=== PATIENT | female | born 1980 | race Asian ===

== ENCOUNTER 2020-12-18 10:29 | Inpatient (IN) | payer OTHER, SELFPAY ==
[~2020-12-18] VITALS: Ht 157.5 cm; Wt 67.6 kg
[2020-12-18 10:30] VITALS: BP 97/57
--- NOTE | 2020-12-18 10:30 | NUR ---
PT BIBA TO BED 03
--- NOTE | 2020-12-18 10:37 | NUR ---
PT LAYLAFRIENJohn, STEPHEN, BEDSIDE WITH PT
--- NOTE | 2020-12-18 10:46 | NUR ---
40 Y/O FEMALE BIBA FROM [facility]. C/O VAGINAL DISCHARGE SINCE THURSDAY WITH SPOTTING. PT STATES SHE IS 21 WEEKS AND STARTED TO FEEL CRAMPS/ABDOMINAL PAIN THURSDAY. PT STATES "A FOOT IS POPPING OUT FROM HER VAGINA." PT STATES SHE HAS EXPERINCED SOME DISCHARGE, AND MILD SPOTTING. PT STATES 7/10 SHARP ABD PAIN. MEDHX: DENIES NKAngelica LMP: 07/25/20
--- NOTE | 2020-12-18 11:00 | NUR ---
DR LANE AT BEDSIDE EXAMINING PT
--- NOTE | 2020-12-18 11:03 | NUR ---
DR LANE PERFORMING ULTRASOUND AT BEDSIDE
--- NOTE | 2020-12-18 12:12 | NUR ---
REPORT GIVEN TO TEGAN PARIS FOR ADMIT TO ([facility] / [facility]). PT WILL GO TO ROOM 212. ETA 10 MINS
[2020-12-18 12:25] VITALS: BP 97/57
--- NOTE | 2020-12-18 12:25 | NUR ---
Patient will be admitted to care of DR MULLINS. Admited to MEDSUR, WILL GO TO . Will go to room 212. Belongings list completed. Report to TEGAN PARIS.
[2020-12-18] MEDS ORDERED: MORPHINE SULFATE 5 MG/ML VIAL IVP PRN (12:35)
[2020-12-18] MEDS ORDERED: ONDANSETRON 4 MG/2 ML VIAL IVP PRN (12:35)
[2020-12-18] MEDS ORDERED: MORPHINE SULFATE 10 MG/ML VIAL ONE (12:38)
[2020-12-18] MEDS: LACTATED RINGERS 1,000 ML IV SCH ×2 (12:51→16:31)
[2020-12-18 13:25] LABS: BASOPHILS # (AUTO) 0.1 K/uL (0.00-0.22); BASOPHILS % (AUTO) 0.7 % (0.0-2.0); EOSINOPHILS # (AUTO) 0.1 K/uL (0-0.4); EOSINOPHILS % (AUTO) 0.3 % (0.0-4.0); HEMATOCRIT 30.8 % (36-48); HEMOGLOBIN 10.1 g/dL (12.0-16.0); LYMPHOCYTES # (AUTO) 1.4 K/uL (2.5-16.5); LYMPHOCYTES % (AUTO) 8.5 % (20.5-51.1); MEAN CORPUSCULAR HEMOGLOBIN 27 pg (27-31); MEAN CORPUSCULAR HGB CONC 33 g/dL (33-37); MEAN CORPUSCULAR VOLUME 82.8 fL (80-94); MONOCYTES # (AUTO) 0.8 K/uL (0.8-1.0); NEUTROPHILS # (AUTO) 13.6 K/uL (1.8-7.7); NEUTROPHILS % (AUTO) 85.5 % (42.2-75.2); PLATELET COUNT (AUTO) 191 K/uL (140-450); RED BLOOD CELL COUNT(AUTO) 3.73 MIL/uL (4.20-5.40); RED CELL DISTRIBUTION WIDTH 14.1 % (11.6-13.7)
[2020-12-18 13:56] LABS: ANION GAP 14.6 (8-16); CARBON DIOXIDE 21.8 mmol/L (21-32); CREATININE 0.6 mg/dL (0.6-1.3); POTASSIUM 4.4 mmol/L (3.5-5.1); TOTAL BILIRUBIN 0.3 mg/dL (0.0-1.0)
[2020-12-18] MEDS ORDERED: ROPIVACAINE 0.2%/NS PREMIX 200 ML EPI ONE (14:30)
[2020-12-18] MEDS ORDERED: fentaNYL citrate 0.05 MG/ML VIAL ONE (14:30)
[2020-12-18 16:01] LABS: APPEARANCE,URINE CLEAR (CLEAR); BILIRUBIN,URINE NEGATIVE (NEGATIVE); BLOOD, URINE NEGATIVE (NEGATIVE); COLOR,URINE YELLOW (YELLOW); LEUKOCYTE ESTERASE ,URINE NEGATIVE (NEGATIVE); NITRITE, URINE NEGATIVE (NEGATIVE); UGLUCOSE NEGATIVE (NEGATIVE)
[2020-12-18] MEDS ORDERED: OXYTOCIN 20 UNITS in LACTATED RINGERS 1,000 ML IV SCH (19:10)
[2020-12-18] MEDS ORDERED: OXYTOCIN 20 UNITS/LR PREMIX 1,000 ML IV ONE (23:40)
[2020-12-18] MEDS ORDERED: CAMERA MC ONE (23:43)
[2020-12-19] MEDS ORDERED: METHYLERGONOVINE 0.2 MG/ML AMP IM PRN (07:45)
[2020-12-19] MEDS ORDERED: BENZOCAINE/MENTHOL 20%-0.5% 60 GM CAN TP PRN (07:45)
[2020-12-19] MEDS ORDERED: OXYTOCIN 10 UNITS/ML VIAL IM PRN (07:45)
[2020-12-19] MEDS ORDERED: IBUPROFEN 800 MG TAB PO PRN ×2 (07:45→07:50)
[2020-12-19] MEDS ORDERED: MEASLES, MUMPS, AND RUBELLA 1 VIAL SQVAC ONE (07:45)
[2020-12-19] MEDS ORDERED: MEASLES, MUMPS, AND RUBELLA 1 VIAL SQVAC PRN (08:05)
--- NOTE | 2020-12-19 09:15 | NUR ---
PATIENT HAS BEEN SCREENED AND CATEGORIZED LOW NUTRITION RISK. PATIENT WILL BE SEEN WITHIN 7 DAYS OF ADMISSION. 12/25/[address]
[2020-12-19] MEDS ORDERED: PNV1TABL5 PO (11:39)
== END 2020-12-19 12:30 | disposition home or self-care (01) | DRG 779 ==
LOC: MED 10:29 → MFCC 12:06
PROVIDERS: ADMIT Obstetrics & Gynecology; ATTEND Obstetrics & Gynecology
DX: O02.1 Missed abortion (principal); Z3A.19 19 weeks gestation of pregnancy; Z20.822 Contact with and (suspected) exposure to COVID-19
CPT/HCPCS: 36415; 51702; 76805; 80053; 81003; 85025; 86886; 86900; 86901; 88300; 88305; 96365; 96366; 96367; 96375; 99285; J2270; J2405; J2590; J2795; J3010